=== PATIENT | female | born 1965 | race Hispanic/Latino ===

== ENCOUNTER → 2017-10-31 | Outpatient (CLI) | payer OTHER ==
[~2017-10-31] MED LIST: ATENOLOL50 MG PO; DITROPAN XL5 MG PO; HYDROCHLOROTHIA25 MG PO; KEFLEX500 MG PO; KETOROLAC TROME10 MG PO; LEVAQUIN500 MG PO; SIMVASTATIN10 MG PO; SIMVASTATIN20 MG PO; TYLENOL WITH C1 EACH PO; ULTRAM50 MG PO
--- NOTE | 2017-10-31 11:56 | Diagnostic Imaging Report ---
PROCEDURE:X-RAY ABDOMEN - KUB COMPARISON:05/26/17 INDICATIONS:HX OF KIDNEY STONES FINDINGS: BOWEL GAS PATTERN:Non-specific bowel gas pattern. CALCIFICATIONS:Unchanged ill-defined density overlying left renal mid/superior pole measuring 2.4 cm. Unchanged pelvic phleboliths. OTHER:Normal for age. CONCLUSION: Nonobstructive bowel gas pattern. Unchanged questionable left renal calculus. Dictated by: Duncan Kelly M.D. on 10/31/2017 at 12:04 Electronically approved by: Duncan Kelly M.D. on 10/31/2017 at 12:04
== END ==
LOC: RAD 11:18
PROVIDERS: ATTEND Urology
DX: N20.0 Calculus of kidney (principal)
CPT/HCPCS: 74000

== ENCOUNTER → 2017-11-16 | Outpatient (CLI) | payer OTHER ==
--- NOTE | 2017-11-16 11:11 | Diagnostic Imaging Report ---
PROCEDURE: CT ABDOMEN AND PELVIS WITHOUT CONTRAST TECHNIQUE: The abdomen and pelvis were scanned utilizing a multidetector helical scanner from the diaphragm to the lesser trochanter after the oral administration of water. No IV contrast was administered because of stone protocol. Coronal and sagittal multiplanar reformations were obtained. DLP: 426.8 mGy-cm COMPARISON: Abdominal CT 01/25/2017. INDICATIONS: CALCULUS OF THE KIDNEY FINDINGS: ABSENCE OF INTRAVENOUS CONTRAST DECREASES SENSITIVITY FOR DETECTION OF FOCAL LESIONS AND VASCULAR PATHOLOGY. LOWER THORAX: Normal. HEPATOBILIARY: Diffuse hepatic steatosis. No focal hepatic lesions. No biliary ductal dilatation. SPLEEN: No splenomegaly. PANCREAS: No focal masses or ductal dilatation. ADRENALS: No adrenal nodules. KIDNEYS/URETERS: No hydronephrosis or solid mass lesions. * Right kidney: Stable stone burden with approximately 4 non-obstructing 2-3 mm calculi. No ureteral calculi. * Left kidney: Stable stone burden with approximately 5 non-obstructing 2-3 mm calculi. No ureteral calculi PELVIC ORGANS/BLADDER: Unremarkable. PERITONEUM / RETROPERITONEUM: No free air or fluid. LYMPH NODES: No lymphadenopathy. VESSELS: Mild atherosclerotic calcific agent in the aorta. GI TRACT: No distention or wall thickening. Appendix is normal. BONES AND SOFT TISSUES: Unchanged ventral wall abdominal diastases with superimposed fat-containing paraumbilical and supraumbilical hernias. IMPRESSION: 1. Stable stone burden from 01/25/2017. No hydronephrosis. 2. Hepatic steatosis. Electronically approved by: Darvin Padron M.D. on 11/16/2017 at 11:20
== END ==
LOC: CT 10:25
PROVIDERS: ATTEND Urology
DX: N20.0 Calculus of kidney (principal)
CPT/HCPCS: 74176

== ENCOUNTER → 2019-02-21 | Outpatient (CLI) | payer OTHER ==
--- NOTE | 2019-02-21 10:35 | Diagnostic Imaging Report ---
EXAM: US ABDOMEN COMPLETE INDICATION: Renal calculus. COMPARISON: CT abdomen/pelvis 11/16/2017. TECHNIQUE: Transverse and longitudinal carr scale and color doppler sonographic images of the upper abdomen were obtained. FINDINGS: LIVER 16.0 cm in the right midclavicular line. Increased echogenicity of the liver with normal contour, no masses. SPLEEN 8.8 cm in maximum diameter. Normal echogenicity, no masses. GALLBLADDER No gallbladder wall thickening, distension, stone, or pericholecystic fluid. Negative reported sonographic Reddy's sign. BILE DUCTS No intra nor extra-hepatic biliary dilation. Common bile duct measures 0.3 cm PANCREAS: Visualized portions are normal. RIGHT KIDNEY: 12.4 cm Echogenicity: Normal Collecting System: No hydronephrosis Stones: None Cyst/Mass: There is a 5 mm echogenic stone in the midpole. There is an additional 4 mm echogenic stone in the upper pole. LEFT KIDNEY: 11.9 cm Echogenicity: Normal Collecting System: No hydronephrosis Stones: None Cyst/Mass: There are 6 mm and 5 mm stones in the lower pole. VESSELS: Aorta: Visualized portions are within normal size limits Inferior Vena Cava: Visualized portions are normal Main Portal Vein: 0.9 cm, normal size with hepatopetal flow. FREE FLUID: None IMPRESSION: Bilateral nonobstructing renal stones as above. Hepatic steatosis with hepatomegaly. Signed by: Dr. Annika Irving MD on 02/21/2019 10:31 AM
== END ==
LOC: US 09:01
PROVIDERS: ATTEND Family Medicine
DX: N20.0 Calculus of kidney (principal)
CPT/HCPCS: 76700

== ENCOUNTER 2023-02-12 17:19 | Emergency (ER) | payer BC, OTHER ==
[~2023-02-12] VITALS: Ht 162.6 cm; Wt 71.7 kg
[2023-02-12] MEDS ORDERED: KETOROLAC TROMETHAMINE 60 MG/2 ML VIAL ONE (18:13)
[2023-02-12] MEDS ORDERED: KETOROLAC TROMETHAMINE 60 MG/2 ML VIAL IM ONE (18:15)
[2023-02-12 19:30] LABS: CLARITY,URINE CLEAR (CLEAR); COLOR,URINE YELLOW (YELLOW)
[2023-02-12 19:31] LABS: KETONES,URINE NEGATIVE (NEGATIVE); LEUKOCYTE ESTERASE ,URINE SMALL (NEGATIVE); NITRITE,URINE NEGATIVE (NEGATIVE); PROTEIN,URINE DIPSTICK NEGATIVE (NEGATIVE); URINE UROBILINOGEN 0.2 mg/dL (0.2 - 1)
[2023-02-12 19:35] LABS: EPITHELIAL CELLS,URINE MANY /LPF
[2023-02-12 19:36] LABS: BACTERIA,URINE MODERATE /HPF; RBC,URINE 0-5 /HPF (0-5)
[2023-02-12] MEDS ORDERED: ULTRAM 50MG50 MG PO (21:22)
[2023-02-12 21:37] VITALS: BP 132/73
== END 2023-02-12 21:37 | disposition home or self-care (01) ==
LOC: ER 18:08
DX: R30.0 Dysuria (principal); N39.0 Urinary tract infection, site not specified; D25.1 Intramural leiomyoma of uterus; K57.30 Diverticulosis of large intestine without perforation or abscess without bleeding; K76.0 Fatty (change of) liver, not elsewhere classified; E78.5 Hyperlipidemia, unspecified
CPT/HCPCS: 74176; 81001; 99283; J1885